=== PATIENT | female | born 1950 | race Caucasian/White ===

== ENCOUNTER 2016-06-03 08:27 | Outpatient (RCR) | payer BC ==
[~2016-06-03 08:27] MED LIST: CEPH500C; FLUO20CA25; OLME1TAB19; PERCOCET; PRAV40TA; SIMV40TA2; VALIUM; [UNRECOGNIZED DRUG - OTHER]
--- OUTSIDE RECORDS SUMMARY | 2016-06-03 08:30 | XMS REPORT | Continuity of Care Document ---
Author Author [facility] Organization [facility] Address Unknown Phone Unavailable Care Team Providers Care Edge Bonder Name Role Phone BUCKY HADLEY MD PCP Insurance Providers Payer Name Policy Number Subscriber Name Relationship [facility] [id number] Janie Gautam 18 Self / Same As Patient Problems No known problems or medical conditions. Medications Medication Dose Route Sig Days/Qty Instructions Order Date Discontinued Date Status Olmesartan 09/08/10 Active [Phenofargrate] 09/08/10 Active Pravastatin Sodium 09/08/10 Active Fluoxetine HCl (Prozac) 09/08/10 Active Simvastatin 09/08/10 Active Cephalexin Monohydrate (Keflex) FOUR TIMES DAILY 09/08/10 Active [Valium] 09/08/10 Active [Percocet] 09/08/10 Active Social History Social History Problem Response Recorded Date/Time Recent Foreign Travel N [place]ALIIA SCOTT 08/12/2014 8:41am Hospital Discharge Instructions No hospital discharge instructions. Plan of Care No plan of care. Functional Status No functional status results. Allergies, Adverse Reactions, Alerts Allergen Type Severity Reaction Status Last Updated sulfamethoxazole ([id number]) Allergy Unknown Active 11/04/10 Trimethoprim Allergy Unknown Active 11/04/10 Immunizations No immunization records. Vital Signs No known vital signs results. Results Laboratory Results Test Name Result Units Flags Reference Collection Date/Time Result Date/ Time Comments White Blood Count 4.0 10^3/uL L 4.3-11.0 08/12/2014 8:41am 08/12/2014 9: 10am Red Blood Count 4.63 10^6/uL 4.35-5.85 08/12/2014 8:4108/12/2014 9: 10am Hemoglobin 12.8 G/DL 11.5-16.0 08/12/2014 8:4108/12/2014 9:10am Hematocrit 38 % 35-52 08/12/2014 8:4108/12/2014 9:10am Mean Corpuscular Volume 81 FL 80-99 08/12/2014 8:4108/12/2014 9: 10am Mean Corpuscular Hemoglobin 28 PG 25-34 08/12/2014 8:4108/12/2014 9: 10am Mean Corpuscular Hemoglobin Concent 34 G/DL 32-36 08/12/2014 8:01/2015 9:10am Red Cell Distribution Width 14.0 % 10.0-14.5 08/12/2014 8:412014 9:10am Platelet Count 213 10^3/uL 130-400 08/12/2014 8:08/12/2014 9:10am Mean Platelet Volume 11.2 FL H 7.4-10.4 08/12/2014 8:4108/12/2014 9: 10am Neutrophils (%) (Auto) 58 % 42-75 08/12/2014 8:08/12/2014 9:10am Lymphocytes (%) (Auto) 31 % 12-44 08/12/2014 8:08/12/2014 9:10am Monocytes (%) (Auto) 8 % 0-12 08/12/2014 8:08/12/2014 9:10am Eosinophils (%) (Auto) 2 % 0-10 08/12/2014 8:4108/12/2014 9:10am Basophils (%) (Auto) 1 % 0-10 08/12/2014 8:08/12/2014 9:10am Neutrophils # (Auto) 2.3 X 10^3 1.8-7.8 08/12/2014 8:4108/12/2014 9: 10am Lymphocytes # (Auto) 1.2 X 10^3 1.0-4.0 08/12/2014 8:4108/12/2014 9: 10am Monocytes # (Auto) 0.3 X 10^3 0.0-1.0 08/12/2014 8:41am 08/12/2014 9: 10am Eosinophils # (Auto) 0.1 10^3/uL 0.0-0.3 08/12/2014 8:41am 08/12/2014 9 :10am Basophils # (Auto) 0.0 10^3/uL 0.0-0.1 08/12/2014 8:41am 08/12/2014 9: 10am Sodium Level 138 MMOL/L 135-145 08/12/2014 8:4108/12/2014 9:50am Potassium Level 3.7 MMOL/L 3.6-5.0 08/12/2014 8:41am 08/12/2014 9:50am Chloride Level 102 MMOL/L 98-107 08/12/2014 8:41am 08/12/2014 9:50am Carbon Dioxide Level 27 MMOL/L 21-32 08/12/2014 8:41am 08/12/2014 9: 50am Blood Urea Nitrogen 19 MG/DL H 7-18 08/12/2014 8:41am 08/12/2014 9:50am Creatinine 0.76 MG/DL 0.60-1.30 08/12/2014 8:41am 08/12/2014 9:50am BUN/Creatinine Ratio 25 08/12/2014 8:41am 08/12/2014 9:50am Estimat Glomerular Filtration Rate > 60 08/12/2014 8:412014 9:50am GFR INTERPRETIVE DATA UNITS FOR ESTIMATED GFR (eGFR): mL/min/1.73 M2 REFERENCE RANGE FOR ESTIMATED GFR (eGFR) eGFR NORMAL eGFR >60 MODERATELY DECREASED eGFR 30-59 SEVERLY DECREASED eGFR 15-29 KIDNEY FAILURE <15 (OR DIALYSIS) Glucose Level 97 MG/DL 70-105 08/12/2014 8:41am 08/12/2014 9:50am Calcium Level 9.6 MG/DL 8.5-10.1 08/12/2014 8:4108/12/2014 9:50am Total Bilirubin 0.5 MG/DL 0.1-1.0 08/12/2014 8:41am 08/12/2014 9:50am Alkaline Phosphatase 29 U/L L 40-136 08/12/2014 8:41am 08/12/2014 9:50am Aspartate Amino Transf (AST/SGOT) 23 U/L 5-34 08/12/2014 8:41am 2014 9:50am Alanine Aminotransferase (ALT/SGPT) 26 U/L 0-55 08/12/2014 8:41am 08/12 9:50am Total Protein 7.0 G/DL 6.4-8.2 08/12/2014 8:41am 08/12/2014 9:50am Albumin 4.4 G/DL 3.2-4.5 08/12/2014 8:41am 08/12/2014 9:50am Procedures No known history of procedures. Encounters Encounter Location Date/Time Discharged Recurring Via [facility] 08/12/14 8:41am
[2016-06-03 08:48] LABS: BASOPHILS % (AUTO) 1 % (0-10); EOSINOPHILS # (AUTO) 0.1 10^3/uL (0.0-0.3); EOSINOPHILS % (AUTO) 3 % (0-10); LYMPHOCYTES # (AUTO) 1.1 X 10^3 (1.0-4.0); LYMPHOCYTES % (AUTO) 30 % (12-44); MEAN CORPUSCULAR HEMOGLOBIN 28 PG (25-34); MEAN CORPUSCULAR HGB CONC 34 G/DL (32-36); MEAN CORPUSCULAR VOLUME 83 FL (80-99); MEAN PLATELET VOLUME 11.4 FL (7.4-10.4); MONOCYTES # (AUTO) 0.3 X 10^3 (0.0-1.0); MONOCYTES % (AUTO) 8 % (0-12); NEUTROPHILS # (AUTO) 2.1 X 10^3 (1.8-7.8); NEUTROPHILS % (AUTO) 59 % (42-75); PLATELET COUNT 224 10^3/uL (130-400); RED BLOOD COUNT 4.79 10^6/uL (4.35-5.85); RED CELL DISTRIBUTION WIDTH 13.6 % (10.0-14.5); WHITE BLOOD COUNT 3.7 10^3/uL (4.3-11.0)
== END 2016-09-01 | disposition home or self-care (01) ==
LOC: ONC 08:27
PROVIDERS: ATTEND Internal Medicine Hematology & Oncology
DX: C50.912 Malignant neoplasm of unspecified site of left female breast (principal); M85.89 Other specified disorders of bone density and structure, multiple sites; Z17.0 Estrogen receptor positive status [ER+]; Z79.811 Long term (current) use of aromatase inhibitors; Z79.899 Other long term (current) drug therapy
CPT/HCPCS: 36415; 82306; 85025

== ENCOUNTER 2016-09-26 14:43 | Outpatient (RCR) | payer BC ==
--- OUTSIDE RECORDS SUMMARY | 2016-09-23 08:34 | XMS REPORT | Continuity of Care Document ---
Author Author [facility] Organization [facility] Address Unknown Phone Unavailable Care Team Providers Care Film Archivist Name Role Phone BUCKY HADLEY MD PCP Insurance Providers Payer Name Policy Number Subscriber Name Relationship [facility] [id number] Janie Gautam 18 Self / Same As [...] Type Severity Reaction Status Last Updated sulfamethoxazole ([id number]) Allergy Unknown Active 11/04/10 Trimethoprim Allergy Unknown [...] Encounters Encounter Location Date/Time Discharged Recurring Via [facility] 08/12/14 8:41am
[2016-09-23 08:51] LABS: BASOPHILS % (AUTO) 1 % (0-10); EOSINOPHILS # (AUTO) 0.2 10^3/uL (0.0-0.3); EOSINOPHILS % (AUTO) 4 % (0-10); LYMPHOCYTES # (AUTO) 1.2 X 10^3 (1.0-4.0); LYMPHOCYTES % (AUTO) 27 % (12-44); MEAN CORPUSCULAR HEMOGLOBIN 28 PG (25-34); MEAN CORPUSCULAR HGB CONC 34 G/DL (32-36); MEAN CORPUSCULAR VOLUME 82 FL (80-99); MEAN PLATELET VOLUME 11.3 FL (7.4-10.4); MONOCYTES # (AUTO) 0.2 X 10^3 (0.0-1.0); MONOCYTES % (AUTO) 5 % (0-12); NEUTROPHILS # (AUTO) 2.7 X 10^3 (1.8-7.8); NEUTROPHILS % (AUTO) 63 % (42-75); PLATELET COUNT 215 10^3/uL (130-400); RED BLOOD COUNT 4.86 10^6/uL (4.35-5.85); RED CELL DISTRIBUTION WIDTH 14.2 % (10.0-14.5); WHITE BLOOD COUNT 4.3 10^3/uL (4.3-11.0)
[2016-09-23 09:15] LABS: ALANINE AMINOTRANSFERASE 29 U/L (0-55); ALBUMIN 4.8 G/DL (3.2-4.5); ANION GAP 13 MMOL/L (5-14); ASPARTATE AMINO TRANSFERASE 27 U/L (5-34); BILIRUBIN,TOTAL 0.6 MG/DL (0.1-1.0); BLOOD UREA NITROGEN 16 MG/DL (7-18); BUN/CREATININE RATIO 20; CALCIUM 9.8 MG/DL (8.5-10.1); CARBON DIOXIDE 24 MMOL/L (21-32); CHLORIDE 101 MMOL/L (98-107); CREATININE SERUM 0.82 MG/DL (0.60-1.30); GFR ESTIMATED > 60; GLUCOSE 96 MG/DL (70-105); POTASSIUM 3.8 MMOL/L (3.6-5.0); SODIUM 138 MMOL/L (135-145); TOTAL PROTEIN 7.1 G/DL (6.4-8.2)
== END 2016-12-22 | disposition home or self-care (01) ==
LOC: ONC 14:43
PROVIDERS: ATTEND Internal Medicine Hematology & Oncology
DX: C50.912 Malignant neoplasm of unspecified site of left female breast (principal); M85.89 Other specified disorders of bone density and structure, multiple sites; Z17.0 Estrogen receptor positive status [ER+]; Z79.811 Long term (current) use of aromatase inhibitors; Z79.899 Other long term (current) drug therapy
CPT/HCPCS: 36415; 80053; 85025; 99213

== ENCOUNTER 2017-03-27 14:59 | Outpatient (RCR) | payer BC ==
[2017-03-23 09:06] LABS: BASOPHILS % (AUTO) 1 % (0-10); EOSINOPHILS # (AUTO) 0.1 10^3/uL (0.0-0.3); EOSINOPHILS % (AUTO) 3 % (0-10); LYMPHOCYTES # (AUTO) 1.2 X 10^3 (1.0-4.0); LYMPHOCYTES % (AUTO) 28 % (12-44); MEAN CORPUSCULAR HEMOGLOBIN 27 PG (25-34); MEAN CORPUSCULAR HGB CONC 33 G/DL (32-36); MEAN CORPUSCULAR VOLUME 83 FL (80-99); MEAN PLATELET VOLUME 11.2 FL (7.4-10.4); MONOCYTES # (AUTO) 0.4 X 10^3 (0.0-1.0); MONOCYTES % (AUTO) 8 % (0-12); NEUTROPHILS # (AUTO) 2.5 X 10^3 (1.8-7.8); NEUTROPHILS % (AUTO) 60 % (42-75); PLATELET COUNT 217 10^3/uL (130-400); RED BLOOD COUNT 4.68 10^6/uL (4.35-5.85); RED CELL DISTRIBUTION WIDTH 14.3 % (10.0-14.5); WHITE BLOOD COUNT 4.2 10^3/uL (4.3-11.0)
[2017-03-23 09:56] LABS: ALANINE AMINOTRANSFERASE 23 U/L (0-55); ALBUMIN 4.5 GM/DL (3.2-4.5); ANION GAP 9 MMOL/L (5-14); ASPARTATE AMINO TRANSFERASE 24 U/L (5-34); BILIRUBIN,TOTAL 0.5 MG/DL (0.1-1.0); BLOOD UREA NITROGEN 16 MG/DL (7-18); BUN/CREATININE RATIO 21; CALCIUM 10.2 MG/DL (8.5-10.1); CARBON DIOXIDE 28 MMOL/L (21-32); CHLORIDE 102 MMOL/L (98-107); CREATININE SERUM 0.78 MG/DL (0.60-1.30); GFR ESTIMATED > 60; GLUCOSE 89 MG/DL (70-105); POTASSIUM 3.7 MMOL/L (3.6-5.0); SODIUM 139 MMOL/L (135-145); TOTAL PROTEIN 6.9 GM/DL (6.4-8.2)
== END 2017-05-06 | disposition home or self-care (01) ==
LOC: ONC 14:59
PROVIDERS: ATTEND Internal Medicine Hematology & Oncology
DX: C50.112 Malignant neoplasm of central portion of left female breast (principal); M85.89 Other specified disorders of bone density and structure, multiple sites; Z17.0 Estrogen receptor positive status [ER+]; Z79.811 Long term (current) use of aromatase inhibitors; Z79.899 Other long term (current) drug therapy
CPT/HCPCS: 36415; 80053; 82306; 85025; 99213

== ENCOUNTER → 2017-08-25 | Outpatient (REF) ==
--- NOTE | 2017-08-25 14:14 | Diagnostic Imaging Report ---
INDICATION: Fall and right elbow pain. TIME OF EXAM: 1:40 p.m. Three views of the right elbow were obtained. The alignment is normal. No joint effusion is seen. There is a tiny osseous density adjacent to the coronoid process of the proximal ulna. Tiny fracture dislocation cannot be excluded. Acuity is indeterminate. No other abnormalities are seen. IMPRESSION: Probable age-indeterminate tiny fracture at the coronoid process of the proximal ulna. The study is otherwise unremarkable. Dictated by: Dictated on workstation # [id number]
--- NOTE | 2017-08-25 14:23 | Diagnostic Imaging Report ---
INDICATION: Fall with right knee pain and injury. TIME OF EXAM: 1:42 p.m. Three views of the right knee were obtained. The alignment is normal. The joint spaces are fairly well-maintained. Articular surfaces are smooth. No fracture, dislocation or effusion is detected. IMPRESSION: No acute abnormality is detected. Dictated by: Dictated on workstation # [id number]
== END | disposition home or self-care (01) ==
LOC: OCC 13:22
PROVIDERS: ATTEND Nurse Practitioner Family
CPT/HCPCS: 73080; 73562

== ENCOUNTER 2017-09-19 10:55 | Outpatient (RCR) | payer MEDICARE, OTHER ==
[2017-08-16 08:52] LABS: BASOPHILS % (AUTO) 1 % (0-10); EOSINOPHILS # (AUTO) 0.1 10^3/uL (0.0-0.3); EOSINOPHILS % (AUTO) 3 % (0-10); HEMATOCRIT 38 % (35-52); HEMOGLOBIN 13.2 G/DL (11.5-16.0); LYMPHOCYTES # (AUTO) 1.1 X 10^3 (1.0-4.0); LYMPHOCYTES % (AUTO) 27 % (12-44); MEAN CORPUSCULAR HEMOGLOBIN 28 PG (25-34); MEAN CORPUSCULAR HGB CONC 35 G/DL (32-36); MEAN CORPUSCULAR VOLUME 82 FL (80-99); MEAN PLATELET VOLUME 11.4 FL (7.4-10.4); MONOCYTES # (AUTO) 0.3 X 10^3 (0.0-1.0); MONOCYTES % (AUTO) 8 % (0-12); NEUTROPHILS # (AUTO) 2.6 X 10^3 (1.8-7.8); NEUTROPHILS % (AUTO) 61 % (42-75); PLATELET COUNT 193 10^3/uL (130-400); RED BLOOD COUNT 4.67 10^6/uL (4.35-5.85); RED CELL DISTRIBUTION WIDTH 14.2 % (10.0-14.5); WHITE BLOOD COUNT 4.2 10^3/uL (4.3-11.0)
[2017-08-16 09:12] LABS: ALANINE AMINOTRANSFERASE 27 U/L (0-55); ALBUMIN 4.3 GM/DL (3.2-4.5); ALKALINE PHOSPHATASE 31 U/L (40-136); BILIRUBIN,TOTAL 0.5 MG/DL (0.1-1.0); BUN/CREATININE RATIO 25; CALCIUM 9.6 MG/DL (8.5-10.1); CARBON DIOXIDE 27 MMOL/L (21-32); CHLORIDE 103 MMOL/L (98-107); CREATININE SERUM 0.73 MG/DL (0.60-1.30); GFR ESTIMATED > 60; GLUCOSE 99 MG/DL (70-105); POTASSIUM 3.9 MMOL/L (3.6-5.0); SODIUM 141 MMOL/L (135-145); TOTAL PROTEIN 6.8 GM/DL (6.4-8.2)
== END 2017-11-14 | disposition home or self-care (01) ==
LOC: ONC 10:55
PROVIDERS: ATTEND Internal Medicine Hematology & Oncology
DX: C50.112 Malignant neoplasm of central portion of left female breast (principal); M85.89 Other specified disorders of bone density and structure, multiple sites; Z17.0 Estrogen receptor positive status [ER+]; Z79.811 Long term (current) use of aromatase inhibitors; Z79.899 Other long term (current) drug therapy
CPT/HCPCS: 80053; 85025; 99213

== ENCOUNTER → 2018-06-07 | Outpatient (CLI) | payer MEDICARE, OTHER ==
--- NOTE | 2018-06-07 10:26 | Diagnostic Imaging Report ---
Indication: Postmenopausal. Comparison is made with prior DEXA study from 05/26/2016. Bone mineral analysis of lumbar spine and both hips was performed. Bone marrow density lumbar spine L2-L4 is 1.063 with T score -1.1. This compares with 1.036 and -1.4. Bone mineral density left femoral neck 0.759 with T score -2.0. This compares with 0.733 and -2.2. Bone mineral density right femoral neck 0.738 with T score -2.2. This compares with 0.749 and -2.1. Impression: Continued findings of osteopenia of the lumbar spine and bilateral femoral necks. Dictated by: Dictated on workstation # [id number]
== END ==
LOC: RAD 08:47
PROVIDERS: ATTEND Nurse Practitioner Adult Health
DX: C50.112 Malignant neoplasm of central portion of left female breast (principal); M85.89 Other specified disorders of bone density and structure, multiple sites; Z78.0 Asymptomatic menopausal state; Z79.811 Long term (current) use of aromatase inhibitors
CPT/HCPCS: 77080

== ENCOUNTER 2018-06-18 10:41 | Outpatient (RCR) | payer MEDICARE, OTHER ==
[2018-06-07 09:30] LABS: BASOPHILS % (AUTO) 0 % (0-10); EOSINOPHILS # (AUTO) 0.1 10^3/uL (0.0-0.3); EOSINOPHILS % (AUTO) 2 % (0-10); HEMATOCRIT 38 % (35-52); LYMPHOCYTES # (AUTO) 1.3 X 10^3 (1.0-4.0); LYMPHOCYTES % (AUTO) 28 % (12-44); MEAN CORPUSCULAR HEMOGLOBIN 29 PG (25-34); MEAN CORPUSCULAR HGB CONC 34 G/DL (32-36); MEAN CORPUSCULAR VOLUME 83 FL (80-99); MEAN PLATELET VOLUME 11.3 FL (7.4-10.4); MONOCYTES # (AUTO) 0.4 X 10^3 (0.0-1.0); MONOCYTES % (AUTO) 8 % (0-12); NEUTROPHILS # (AUTO) 2.9 X 10^3 (1.8-7.8); NEUTROPHILS % (AUTO) 61 % (42-75); PLATELET COUNT 203 10^3/uL (130-400); RED CELL DISTRIBUTION WIDTH 14.2 % (10.0-14.5); WHITE BLOOD COUNT 4.7 10^3/uL (4.3-11.0)
[2018-06-07 09:57] LABS: ALANINE AMINOTRANSFERASE 27 U/L (0-55); ALBUMIN 4.9 GM/DL (3.2-4.5); ALKALINE PHOSPHATASE 35 U/L (40-136); BILIRUBIN,TOTAL 0.6 MG/DL (0.1-1.0); BUN/CREATININE RATIO 18; CALCIUM 10.5 MG/DL (8.5-10.1); CARBON DIOXIDE 26 MMOL/L (21-32); CHLORIDE 103 MMOL/L (98-107); CREATININE SERUM 0.78 MG/DL (0.60-1.30); GFR ESTIMATED > 60; GLUCOSE 94 MG/DL (70-105); SODIUM 139 MMOL/L (135-145); TOTAL PROTEIN 7.4 GM/DL (6.4-8.2)
== END 2018-09-05 | disposition home or self-care (01) ==
LOC: ONC 10:41
PROVIDERS: ATTEND Internal Medicine Hematology & Oncology
DX: C50.112 Malignant neoplasm of central portion of left female breast (principal); M85.89 Other specified disorders of bone density and structure, multiple sites; Z17.0 Estrogen receptor positive status [ER+]; Z78.0 Asymptomatic menopausal state; Z79.811 Long term (current) use of aromatase inhibitors; Z79.899 Other long term (current) drug therapy
CPT/HCPCS: 36415; 80053; 82306; 85025

== ENCOUNTER 2018-12-17 09:49 | Outpatient (RCR) | payer MEDICARE, OTHER ==
[2018-12-17 10:11] LABS: BASOPHILS % (AUTO) 1 % (0-10); EOSINOPHILS # (AUTO) 0.1 10^3/uL (0.0-0.3); EOSINOPHILS % (AUTO) 3 % (0-10); HEMATOCRIT 39 % (35-52); HEMOGLOBIN 12.9 G/DL (11.5-16.0); LYMPHOCYTES # (AUTO) 1.3 X 10^3 (1.0-4.0); LYMPHOCYTES % (AUTO) 28 % (12-44); MEAN CORPUSCULAR HEMOGLOBIN 28 PG (25-34); MEAN CORPUSCULAR HGB CONC 33 G/DL (32-36); MEAN CORPUSCULAR VOLUME 83 FL (80-99); MEAN PLATELET VOLUME 11.2 FL (7.4-10.4); MONOCYTES # (AUTO) 0.3 X 10^3 (0.0-1.0); MONOCYTES % (AUTO) 8 % (0-12); NEUTROPHILS # (AUTO) 2.7 X 10^3 (1.8-7.8); NEUTROPHILS % (AUTO) 61 % (42-75); PLATELET COUNT 223 10^3/uL (130-400); RED CELL DISTRIBUTION WIDTH 13.9 % (10.0-14.5); WHITE BLOOD COUNT 4.4 10^3/uL (4.3-11.0)
[2018-12-17 10:23] LABS: ALANINE AMINOTRANSFERASE 23 U/L (0-55); ALBUMIN 4.6 GM/DL (3.2-4.5); ALKALINE PHOSPHATASE 44 U/L (40-136); BILIRUBIN,TOTAL 0.5 MG/DL (0.1-1.0); BUN/CREATININE RATIO 22; CALCIUM 10.1 MG/DL (8.5-10.1); CARBON DIOXIDE 25 MMOL/L (21-32); CHLORIDE 102 MMOL/L (98-107); CREATININE SERUM 0.81 MG/DL (0.60-1.30); GFR ESTIMATED > 60; GLUCOSE 100 MG/DL (70-105); SODIUM 139 MMOL/L (135-145)
== END 2019-03-17 ==
LOC: ONC 09:49
PROVIDERS: ATTEND Internal Medicine Hematology & Oncology
DX: C50.112 Malignant neoplasm of central portion of left female breast (principal); M85.89 Other specified disorders of bone density and structure, multiple sites; Z17.0 Estrogen receptor positive status [ER+]; Z78.0 Asymptomatic menopausal state; Z79.811 Long term (current) use of aromatase inhibitors; Z79.899 Other long term (current) drug therapy
CPT/HCPCS: 36415; 80053; 85025; 99213

== ENCOUNTER 2019-06-27 10:08 | Outpatient (RCR) | payer MEDICARE, OTHER ==
[2019-06-27 10:52] LABS: BASOPHILS % (AUTO) 1 % (0-10); EOSINOPHILS # (AUTO) 0.1 10^3/uL (0.0-0.3); EOSINOPHILS % (AUTO) 2 % (0-10); HEMATOCRIT 40 % (35-52); HEMOGLOBIN 13.3 G/DL (11.5-16.0); LYMPHOCYTES # (AUTO) 1.3 X 10^3 (1.0-4.0); LYMPHOCYTES % (AUTO) 26 % (12-44); MEAN CORPUSCULAR HEMOGLOBIN 28 PG (25-34); MEAN CORPUSCULAR HGB CONC 33 G/DL (32-36); MEAN CORPUSCULAR VOLUME 84 FL (80-99); MEAN PLATELET VOLUME 11.6 FL (7.4-10.4); MONOCYTES # (AUTO) 0.3 X 10^3 (0.0-1.0); MONOCYTES % (AUTO) 7 % (0-12); NEUTROPHILS # (AUTO) 3.1 X 10^3 (1.8-7.8); NEUTROPHILS % (AUTO) 64 % (42-75); PLATELET COUNT 216 10^3/uL (130-400); WHITE BLOOD COUNT 4.8 10^3/uL (4.3-11.0)
[2019-06-27 11:13] LABS: ALANINE AMINOTRANSFERASE 32 U/L (0-55); ALBUMIN 4.7 GM/DL (3.2-4.5); ALKALINE PHOSPHATASE 39 U/L (40-136); BILIRUBIN,TOTAL 0.5 MG/DL (0.1-1.0); BUN/CREATININE RATIO 20; CALCIUM 9.8 MG/DL (8.5-10.1); CARBON DIOXIDE 27 MMOL/L (21-32); CHLORIDE 102 MMOL/L (98-107); CREATININE SERUM 0.79 MG/DL (0.60-1.30); GFR ESTIMATED > 60; GLUCOSE 95 MG/DL (70-105); POTASSIUM 3.8 MMOL/L (3.6-5.0); SODIUM 138 MMOL/L (135-145)
== END 2019-09-25 | disposition home or self-care (01) ==
LOC: ONC 10:08
PROVIDERS: ATTEND Internal Medicine Hematology & Oncology
DX: C50.112 Malignant neoplasm of central portion of left female breast (principal); M85.89 Other specified disorders of bone density and structure, multiple sites; I10 Essential (primary) hypertension; E78.00 Pure hypercholesterolemia, unspecified; Z79.899 Other long term (current) drug therapy; Z92.21 Personal history of antineoplastic chemotherapy; Z90.11 Acquired absence of right breast and nipple; Z98.82 Breast implant status; Z78.0 Asymptomatic menopausal state; Z79.811 Long term (current) use of aromatase inhibitors
CPT/HCPCS: 36415; 80053; 85025; 99213

== ENCOUNTER → 2019-06-27 | Outpatient (CLI) | payer MEDICARE, OTHER | LOC: LAB 10:14 | PROVIDERS: ATTEND Family Medicine | DX: E78.2 Mixed hyperlipidemia (principal); E55.9 Vitamin D deficiency, unspecified; I10 Essential (primary) hypertension | CPT/HCPCS: 36415; 80061; 82306; 84443 ==

== ENCOUNTER 2019-12-25 12:34 | Outpatient (RCR) | payer MEDICARE, OTHER ==
[2019-12-25 13:23] LABS: BASOPHILS % (AUTO) 1 % (0-10); EOSINOPHILS # (AUTO) 0.1 10^3/uL (0.0-0.3); EOSINOPHILS % (AUTO) 2 % (0-10); HEMATOCRIT 38 % (35-52); HEMOGLOBIN 12.8 G/DL (11.5-16.0); LYMPHOCYTES # (AUTO) 1.2 X 10^3 (1.0-4.0); LYMPHOCYTES % (AUTO) 24 % (12-44); MEAN CORPUSCULAR HEMOGLOBIN 28 PG (25-34); MEAN CORPUSCULAR HGB CONC 34 G/DL (32-36); MEAN CORPUSCULAR VOLUME 83 FL (80-99); MEAN PLATELET VOLUME 11.5 FL (7.4-10.4); MONOCYTES # (AUTO) 0.4 X 10^3 (0.0-1.0); MONOCYTES % (AUTO) 7 % (0-12); NEUTROPHILS # (AUTO) 3.4 X 10^3 (1.8-7.8); NEUTROPHILS % (AUTO) 67 % (42-75); PLATELET COUNT 193 10^3/uL (130-400); RED CELL DISTRIBUTION WIDTH 14.4 % (10.0-14.5)
[2019-12-25 13:43] LABS: ALANINE AMINOTRANSFERASE 31 U/L (0-55); ALBUMIN 4.5 GM/DL (3.2-4.5); ALKALINE PHOSPHATASE 38 U/L (40-136); BILIRUBIN,TOTAL 0.5 MG/DL (0.1-1.0); BUN/CREATININE RATIO 21; CARBON DIOXIDE 26 MMOL/L (21-32); CHLORIDE 101 MMOL/L (98-107); CREATININE SERUM 0.76 MG/DL (0.60-1.30); GFR ESTIMATED > 60; GLUCOSE 95 MG/DL (70-105); POTASSIUM 3.8 MMOL/L (3.6-5.0); SODIUM 138 MMOL/L (135-145)
== END 2020-03-24 | disposition home or self-care (01) ==
LOC: ONC 12:34
PROVIDERS: ATTEND Internal Medicine Hematology & Oncology
DX: C50.112 Malignant neoplasm of central portion of left female breast (principal); M85.89 Other specified disorders of bone density and structure, multiple sites; I10 Essential (primary) hypertension; E78.00 Pure hypercholesterolemia, unspecified; Z79.899 Other long term (current) drug therapy; Z92.21 Personal history of antineoplastic chemotherapy; Z90.11 Acquired absence of right breast and nipple; Z98.82 Breast implant status; Z78.0 Asymptomatic menopausal state; Z79.811 Long term (current) use of aromatase inhibitors
CPT/HCPCS: 80053; 85025; G0463; 99213

== ENCOUNTER → 2020-06-09 | Outpatient (CLI) | payer MEDICARE, OTHER | LOC: LAB 10:21 | PROVIDERS: ATTEND Family Medicine | DX: Z13.6 Encounter for screening for cardiovascular disorders (principal); I10 Essential (primary) hypertension | CPT/HCPCS: 36415; 80061; 84443 ==

== ENCOUNTER → 2020-06-09 | Outpatient (CLI) | payer MEDICARE, OTHER ==
--- NOTE | 2020-06-09 15:14 | Diagnostic Imaging Report ---
INDICATION: 69-year-old female, postmenopausal. Screening for osteoporosis. COMPARISON: June 07, 2018. FINDINGS: AP Spine L1-L4: [BMD (g/cm2): 1.040] [T-Score: -1.3] [Z-Score: 0.2] [BMD Previous: 1.063] [BMD % Change: -2.2] LT Hip Neck: [BMD (g/cm2): 0.731] [T-Score: -2.2] [Z-Score: -0.7] LT Hip Total: [BMD (g/cm2):0.766] [T-Score:-1.9] [Z-Score: -0.6] [BMD Previous: 0.792] [BMD % Change: -3.3] RT Hip Neck: [BMD (g/cm2):0.768] [T-Score:-1.9] [Z-Score:-0.4] RT Hip Total: [BMD (g/cm2):0.830] [T-score:-1.4] [Z-Score:-0.1] [BMD Previous:0.826] [BMD % Change:0.5] *Indicates significant change from prior examination based on 95% confidence level. World Health Organization criteria for BMD interpretation classify patients as Normal (T-score at or above -1.0), Osteopenic (T-score between -1.0 and -2.5) or Osteoporotic (T-score at or below -2.5). LIMITATIONS AND MODIFICATION: None. FRACTURE RISK (FRAX SCORE): The ten year probability of (%): Major Osteoporotic Fracture: [12.3] Hip Fracture: [2.5] IMPRESSION: 1. Osteopenia (Low bone mass). 2. No significant change in bone mineral density since prior examination. 3. See below National Osteoporosis Foundation guidelines on when to potentially initiate pharmacologic therapy. Based on the National Osteoporosis Foundation Guidelines, pharmacologic treatment should be initiated in any of the following, unless clinical conditions suggest otherwise: * Any patient with prior fragility fracture of the hip or vertebrae. A spine fracture indicates 5X risk for subsequent spine fracture and 2X risk for subsequent hip fracture. * Osteoporosis (T-score <-2.5). * Postmenopausal women and men age 50 and older with low bone mass/osteopenia (T-score between -1.0 and -2.5) by DXA and 10-year major osteoporotic fracture greater than 20% or a 10-year probability of hip fracture greater than 3%. These fracture risks are supplied above in the FRAX score, if applicable. * Clinician judgement and/or patient preferences may indicate treatment for people with 10-year fracture probabilities above or below these levels. Dictated by: Dictated on workstation # [id number]
== END ==
LOC: RAD 09:30
PROVIDERS: ATTEND Nurse Practitioner Adult Health
DX: C50.112 Malignant neoplasm of central portion of left female breast (principal); M85.88 Other specified disorders of bone density and structure, other site; Z79.811 Long term (current) use of aromatase inhibitors; Z78.0 Asymptomatic menopausal state
CPT/HCPCS: 77080

== ENCOUNTER 2020-06-15 10:47 | Outpatient (RCR) | payer MEDICARE, OTHER ==
[2020-06-09 11:01] LABS: BASOPHILS % (AUTO) 1 % (0-10); EOSINOPHILS # (AUTO) 0.1 10^3/uL (0.0-0.3); EOSINOPHILS % (AUTO) 3 % (0-10); HEMATOCRIT 40 % (35-52); HEMOGLOBIN 13.2 g/dL (11.5-16.0); LYMPHOCYTES % (AUTO) 25 % (12-44); MEAN CORPUSCULAR HEMOGLOBIN 28 pg (25-34); MEAN CORPUSCULAR HGB CONC 33 g/dL (32-36); MEAN CORPUSCULAR VOLUME 84 fL (80-99); MONOCYTES # (AUTO) 0.3 10^3/uL (0.0-1.0); MONOCYTES % (AUTO) 7 % (0-12); NEUTROPHILS # (AUTO) 2.6 10^3/uL (1.8-7.8); NEUTROPHILS % (AUTO) 65 % (42-75); PLATELET COUNT 192 10^3/uL (130-400); WHITE BLOOD COUNT 4.1 10^3/uL (4.3-11.0)
[2020-06-09 11:20] LABS: ALANINE AMINOTRANSFERASE 33 U/L (0-55); ALBUMIN 4.7 GM/DL (3.2-4.5); ALKALINE PHOSPHATASE 44 U/L (40-136); BILIRUBIN,TOTAL 0.7 MG/DL (0.1-1.0); BUN/CREATININE RATIO 17; CALCIUM 9.6 MG/DL (8.5-10.1); CARBON DIOXIDE 30 MMOL/L (21-32); CHLORIDE 101 MMOL/L (98-107); CREATININE SERUM 0.77 MG/DL (0.60-1.30); GFR ESTIMATED > 60; GLUCOSE 96 MG/DL (70-105); POTASSIUM 3.8 MMOL/L (3.6-5.0); SODIUM 139 MMOL/L (135-145); TOTAL PROTEIN 7.1 GM/DL (6.4-8.2)
== END 2020-09-07 | disposition home or self-care (01) ==
LOC: ONC 10:47
PROVIDERS: ATTEND Internal Medicine Hematology & Oncology
DX: C50.112 Malignant neoplasm of central portion of left female breast (principal); M85.89 Other specified disorders of bone density and structure, multiple sites; I10 Essential (primary) hypertension; E78.00 Pure hypercholesterolemia, unspecified; Z79.899 Other long term (current) drug therapy; Z92.21 Personal history of antineoplastic chemotherapy; Z90.11 Acquired absence of right breast and nipple; Z98.82 Breast implant status; Z78.0 Asymptomatic menopausal state; Z79.811 Long term (current) use of aromatase inhibitors
CPT/HCPCS: 80053; 85025; 99213

== ENCOUNTER → 2021-03-22 | Outpatient (CLI) | payer MEDICARE, OTHER ==
[2021-03-22 09:57] LABS: BASOPHILS # (AUTO) 0.1 10^3/uL (0.0-0.1); BASOPHILS % (AUTO) 1 % (0-10); EOSINOPHILS # (AUTO) 0.1 10^3/uL (0.0-0.3); EOSINOPHILS % (AUTO) 3 % (0-10); HEMATOCRIT 40 % (35-52); HEMOGLOBIN 13.2 g/dL (11.5-16.0); LYMPHOCYTES # (AUTO) 1.3 10^3/uL (1.0-4.0); LYMPHOCYTES % (AUTO) 27 % (12-44); MEAN CORPUSCULAR HEMOGLOBIN 28 pg (25-34); MEAN CORPUSCULAR HGB CONC 33 g/dL (32-36); MEAN CORPUSCULAR VOLUME 86 fL (80-99); MEAN PLATELET VOLUME 12.1 fL (9.0-12.2); MONOCYTES # (AUTO) 0.4 10^3/uL (0.0-1.0); MONOCYTES % (AUTO) 8 % (0-12); NEUTROPHILS # (AUTO) 2.9 10^3/uL (1.8-7.8); NEUTROPHILS % (AUTO) 61 % (42-75); PLATELET COUNT 200 10^3/uL (130-400); WHITE BLOOD COUNT 4.7 10^3/uL (4.3-11.0)
[2021-03-22 10:18] LABS: ALANINE AMINOTRANSFERASE 30 U/L (0-55); ALBUMIN 4.6 GM/DL (3.2-4.5); ALKALINE PHOSPHATASE 48 U/L (40-136); BILIRUBIN,TOTAL 0.6 MG/DL (0.1-1.0); BUN/CREATININE RATIO 18; CALCIUM 9.9 MG/DL (8.5-10.1); CARBON DIOXIDE 28 MMOL/L (21-32); CHLORIDE 104 MMOL/L (98-107); GFR ESTIMATED 71; GLUCOSE 98 MG/DL (70-105); POTASSIUM 3.7 MMOL/L (3.6-5.0); SODIUM 140 MMOL/L (135-145); TOTAL PROTEIN 7.3 GM/DL (6.4-8.2)
== END ==
LOC: EDSTATUS 02-09 09:05 → ONC 09:42
PROVIDERS: ATTEND Internal Medicine Hematology & Oncology
DX: C50.112 Malignant neoplasm of central portion of left female breast (principal); M85.80 Other specified disorders of bone density and structure, unspecified site; I10 Essential (primary) hypertension; E78.00 Pure hypercholesterolemia, unspecified; Z90.12 Acquired absence of left breast and nipple; Z92.21 Personal history of antineoplastic chemotherapy; Z79.890 Hormone replacement therapy; Z78.0 Asymptomatic menopausal state
CPT/HCPCS: 80053; 85025; G0463; 99213

== ENCOUNTER → 2021-03-22 | Outpatient (CLI) | payer MEDICARE, OTHER | LOC: LAB 08:44 | PROVIDERS: ATTEND Family Medicine | DX: E78.2 Mixed hyperlipidemia (principal); I10 Essential (primary) hypertension | CPT/HCPCS: 36415; 80061; 84443 ==

== ENCOUNTER 2022-03-12 10:08 | Emergency (ER) | payer MEDICARE, OTHER ==
[~2022-03-12] VITALS: Ht 167 cm; Wt 65.7 kg
[2022-03-12] MEDS ORDERED: NS IV 500 ML 500 ML IV STA (11:03)
[2022-03-12 11:10] LABS: BASOPHILS % (AUTO) 1 % (0-10); EOSINOPHILS # (AUTO) 0.1 10^3/uL (0.0-0.3); EOSINOPHILS % (AUTO) 2 % (0-10); HEMATOCRIT 42 % (35-52); HEMOGLOBIN 13.8 g/dL (11.5-16.0); LYMPHOCYTES % (AUTO) 19 % (12-44); MEAN CORPUSCULAR HEMOGLOBIN 27 pg (25-34); MEAN CORPUSCULAR HGB CONC 33 g/dL (32-36); MEAN CORPUSCULAR VOLUME 82 fL (80-99); MEAN PLATELET VOLUME 11.5 fL (9.0-12.2); MONOCYTES # (AUTO) 0.3 10^3/uL (0.0-1.0); MONOCYTES % (AUTO) 5 % (0-12); NEUTROPHILS % (AUTO) 74 % (42-75); PLATELET COUNT 183 10^3/uL (130-400); WHITE BLOOD COUNT 5.5 10^3/uL (4.3-11.0)
[2022-03-12 11:12] LABS: ALBUMIN 4.6 GM/DL (3.2-4.5); CHLORIDE 105 MMOL/L (98-107); POTASSIUM 3.6 MMOL/L (3.6-5.0); SODIUM 141 MMOL/L (135-145)
[2022-03-12 11:13] LABS: CALCIUM 9.5 MG/DL (8.5-10.1)
[2022-03-12 11:14] LABS: GLUCOSE 112 MG/DL (70-105); TOTAL PROTEIN 7.1 GM/DL (6.4-8.2)
[2022-03-12 11:15] LABS: CARBON DIOXIDE 26 MMOL/L (21-32)
[2022-03-12 11:16] LABS: BILIRUBIN,TOTAL 0.5 MG/DL (0.1-1.0)
[2022-03-12 11:18] LABS: ALKALINE PHOSPHATASE 39 U/L (40-136); CREATININE SERUM 0.74 MG/DL (0.60-1.30); GFR ESTIMATED 88
[2022-03-12 11:19] LABS: BUN/CREATININE RATIO 18
[2022-03-12 11:21] LABS: ALANINE AMINOTRANSFERASE 32 U/L (0-55)
[2022-03-12] MEDS ORDERED: MECLIZINE 25 MG (ANTIVERT) TAB PO ONE (11:45)
--- NOTE | 2022-03-12 11:48 | Diagnostic Imaging Report ---
PROCEDURE: CT head without contrast. TECHNIQUE: Multiple contiguous axial images were obtained through the brain without the use of intravenous contrast. Auto Exposure Controls were utilized during the CT exam to meet ALARA standards for radiation dose reduction. INDICATION: Acute dizziness. FINDINGS: There is prominence of the ventricles and sulci. There is mild chronic microvascular ischemic disease. There is no hydrocephalus. There is no midline shift. There is no mass, hemorrhage or extra-axial fluid collection. There is some left maxillary sinus disease. The remaining sinuses and mastoid air cells are clear. IMPRESSION: Atrophy and mild chronic microvascular ischemic disease however no acute intracranial abnormality. If there is high clinical concern for an acute CVA, further evaluation with MRI should be obtained. Left maxillary sinus. Dictated by: Dictated on workstation # [id number]
--- NOTE | 2022-03-12 11:51 | ED General ---
General Chief Complaint: Dizziness/Syncope Stated Complaint: DIZZINESS,N/V Nursing Triage Note: PT PRESENTS TO ED WITH COMPLAINTS OF DIZZINESS STARTING THIS AM WHEN SHE WOKE UP. PT STATES SHE ALSO FELT PALPITATIONS AND BECAME NAUSEATED AND VOMITED. PT DAUGHTER REPORTS SHE NOTICED HER MOTHERS WATCH REPORTED SHE WAS IN AFIB AND SHE DOES NOT HAVE A HX OF THAT. 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 PT DENIES CP. Source of Information: Patient Exam Limitations: No Limitations History of Present Illness Date Seen by Provider: Mar 12, 2022 Time Seen by Provider: 10:45 Initial Comments Patient is a 71-year-old female who presents to the emergency department today with a chief complaint of feeling dizzy this morning when she got up out of bed. Patient states that she did not really sleep well throughout the night. She was uncomfortable and nauseous and the dizziness came on while she was lying in bed. It was made worse with turning. She has not had anything quite like this in the past. When she got up and out of bed this morning she had a couple of episodes of vomiting. She denies headache, vision changes or speech changes. Her daughter came over and used her phone and believes that she was in atrial fibrillation. Rate according to the phone was in the 50s to 60s. I did look at these strips on the iPhone and the rhythm looked irregular and I could not discern P waves however when the patient came in and we got an EKG she is very definitely in a sinus bradycardia at 51 beats a minute. Patient states her normal heart rate is in the mid 50s to low 60s. Her nausea is much improved on arrival to the emergency department. She still feels a little dizzy with position changes. No history of atrial fibrillation. Most significant medical history is breast cancer 11 years ago with chemo and bilateral mastectomies. She continues to follow with the [facility]. No recent febrile illnesses. No earache, sore throat or runny nose. No diarrhea or urinary complaints. No black or bloody stools. She states that she ate a couple of pieces of cake late last night before bed. All other review of systems reviewed and negative except as stated Timing/Duration: 12 Hours Severity: Moderate Modifying Factors: worse with Movement Associated Systoms: Nausea/Vomiting, Other (dizziness) Allergies and Home Medications Allergies Coded Allergies: Sulfamethoxazole (Verified Allergy, Unknown, 11/04/10) Trimethoprim (Verified Allergy, Unknown, 11/04/10) Patient Home Medication List Home Medication List Reviewed: Yes Cephalexin Monohydrate (Cephalexin) 500 Mg Capsule, QID, (Reported) Entered as Reported by: WALESKA PETERSON on 09/08/101940 Fluoxetine Hcl (Fluoxetine Hcl) 20 Mg Capsule, (Reported) Entered as Reported by: WALESKA PETERSON on 09/08/101940 Olmesartan (Benicar Hct 20-12.5 Mg Tab) 1 Tab Tablet, (Reported) Entered as Reported by: WALESKA PETERSON on 09/08/101940 Ondansetron (Ondansetron Odt) 4 Mg Tab.rapdis, 4 MG PO Q8H PRN for nausea Prescribed by: KATIE ARAYA on 03/12/22 1225 Pravastatin Sodium (Pravachol) 40 Mg Tablet, (Reported) Entered as Reported by: WALESKA PETERSON on 09/08/101940 Simvastatin (Zocor) 40 Mg Tablet, (Reported) Entered as Reported by: WALESKA PETERSON on 09/08/101940 [Percocet] , (Reported) Entered as Reported by: WALESKA PETERSON on 09/08/101940 [Phenofargrate] , (Reported) Entered as Reported by: WALESKA PETERSON on 09/08/101940 [Valium] , (Reported) Entered as Reported by: WALESKA PETERSON on 09/08/101940 Review of Systems Review of Systems Constitutional: see HPI EENTM: no symptoms reported Respiratory: no symptoms reported Cardiovascular: no symptoms reported Gastrointestinal: nausea, vomiting Genitourinary: no symptoms reported : No Musculoskeletal: no symptoms reported Skin: no symptoms reported Psychiatric/Neurological: Other (dizziness) Past Bewpssc-Kzbknf-Qzcxbi Hx Patient Social History Tobacco Use?: No Substance use?: No Alcohol Use?: Yes Alcohol Frequency: Rarely Pt feels they are or have been: No Immunizations Up To Date First/Initial COVID19 Vaccinat: yes Second COVID19 Vaccination Chris: yes Third COVID19 Vaccination Date: yes 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 oz. kg; 23.00 BMI Method:Stated General Appearance: No Apparent Distress, WD/WN Eyes: Bilateral Eye Normal Inspection, Bilateral Eye PERRL, Bilateral Eye EOMI HEENT: PERRL/EOMI, TMs Normal, Pharynx Normal Neck: Normal Inspection, Non Tender, Supple Respiratory: Lungs Clear, Normal Breath Sounds, No Accessory Muscle Use, No Respiratory Distress Cardiovascular: Regular Rate, Rhythm, Normal Peripheral Pulses; No Irregularly Irregular, No Tachycardia Gastrointestinal: Normal Bowel Sounds, Non Tender, Soft Extremity: Normal Capillary Refill, Normal Inspection, Normal Range of Motion, Non Tender, No Calf Tenderness, No Pedal Edema Neurologic/Psychiatric: Alert, Oriented x3, No Motor/Sensory Deficits, Normal Mood/Affect, staff toxicologist II-XII Norm as Tested; No Abnormal Cerebellar Tests Skin: Normal Color, Warm/Dry Progress/Results/Core Measures Suspected Sepsis SIRS Temperature: Pulse: 54 Respiratory Rate: 16 Laboratory Tests 03/12/22 10:42: White Blood Count 5.5 Blood Pressure 155 /68 Mean: 97 Laboratory Tests 03/12/22 10:42: Creatinine 0.74, Platelet Count 183, Total Bilirubin 0.5 Results/Orders Lab Results Laboratory Tests Test 03/12/22 10:42 Range/Units White Blood Count 5.5 4.3-11.0 10^3/uL Red Blood Count 5.07 3.80-5.11 10^6/uL Hemoglobin 13.8 11.5-16.0 g/dL Hematocrit 42 35-52 % Mean Corpuscular Volume 82 80-99 fL Mean Corpuscular Hemoglobin 27 25-34 pg Mean Corpuscular Hemoglobin Concent 33 32-36 g/dL Red Cell Distribution Width 14.1 10.0-14.5 % Platelet Count 183 130-400 10^3/uL Mean Platelet Volume 11.5 9.0-12.2 fL Immature Granulocyte % (Auto) 0 % Neutrophils (%) (Auto) 74 42-75 % Lymphocytes (%) (Auto) 19 12-44 % Monocytes (%) (Auto) 5 0-12 % Eosinophils (%) (Auto) 2 0-10 % Basophils (%) (Auto) 1 0-10 % Neutrophils # (Auto) 4.0 1.8-7.8 10^3/uL Lymphocytes # (Auto) 1.0 1.0-4.0 10^3/uL Monocytes # (Auto) 0.3 0.0-1.0 10^3/uL Eosinophils # (Auto) 0.1 0.0-0.3 10^3/uL Basophils # (Auto) 0.0 0.0-0.1 10^3/uL Immature Granulocyte # (Auto) 0.0 0.0-0.1 10^3/uL Sodium Level 141 135-145 MMOL/L Potassium Level 3.6 3.6-5.0 MMOL/L Chloride Level 105 98-107 MMOL/L Carbon Dioxide Level 26 21-32 MMOL/L Anion Gap 10 5-14 MMOL/L Blood Urea Nitrogen 13 7-18 MG/DL Creatinine 0.74 0.60-1.30 MG/DL Estimat Glomerular Filtration Rate 88 BUN/Creatinine Ratio 18 Glucose Level 112 H 70-105 MG/DL Calcium Level 9.5 8.5-10.1 MG/DL Corrected Calcium 8.5-10.1 MG/DL Total Bilirubin 0.5 0.1-1.0 MG/DL Aspartate Amino Transf (AST/SGOT) 26 5-34 U/L Alanine Aminotransferase (ALT/SGPT) 32 0-55 U/L Alkaline Phosphatase 39 L 40-136 U/L Total Protein 7.1 6.4-8.2 GM/DL Albumin 4.6 H 3.2-4.5 GM/DL My Orders Orders - KATIE ARAYA MD Ed Iv/Invasive Line Start (03/12/22 11:03) Cbc With Automated Diff (03/12/22 11:03) Comprehensive Metabolic Panel (03/12/22 11:03) Ct Head Wo (03/12/22 11:03) Ns Iv 500 Ml (Sodium Chloride 0.9%) (03/12/22 11:03) Meclizine Tablet (Antivert Tablet) (03/12/22 11:45) Medications Given in ED Vital Signs/I&O 03/12/22 03/12/22 10:44 12:33 Temp 36.2 Pulse 54 54 Resp 16 12 B/P (MAP) 155/68 (97) 148/61 Pulse Ox 99 98 Capillary Refill : Less Than 3 Seconds Blood Pressure Mean: 97 Progress Note : Time: 12:25 Progress Note Patient feels better after the meclizine. She has gotten up and ambulated to the bathroom with a steady gait, no ataxia. She states she feels much better than her prior attempt to get up to go to the bathroom. I have sent a prescription for Zofran to her pharmacy at [facility]. I recommended continuing the meclizine every 6 hours until symptoms start to improve. Return precautions provided. All questions are sought and answered. ECG Initial ECG Impression Date: Mar 12, 2022 Initial ECG Impression Time: 10:52 Initial ECG Rate: 51 Initial ECG Rhythm: S.Karl Initial ECG Impression: Nonspecific Changes Departure Impression Primary Impression: Vertigo Disposition: 01 HOME, SELF-CARE Condition: Improved Departure-Patient Inst. Decision time for Depature: 12:22 Referrals: BUCKY MARTINEZ MD (PCP/Family) Primary Care Physician Patient Instructions: Vertigo ED Add. Discharge Instructions: Drink plenty of fluids to stay well-hydrated. Take meclizine 25 mg every 6 hours as needed for dizziness. If you develop a headache or fever with your dizziness please come back to the emergency department for reevaluation. Please call and follow-up with Dr. Martinez on Monday. Continue all your daily prescribed medications. Scripts Ondansetron (Ondansetron Odt) 4 Mg Tab.rapdis 4 MG PO Q8H PRN for nausea, #20 TAB Prov: KATIE ARAYA MD 03/12/22 Copy Copies To 1: BUCKY MARTINEZ MD, KATHRYN M MD Mar 12, 2022 11:50
[2022-03-12] MEDS ORDERED: ONDA4TAB11 PO (12:25)
[2022-03-12 12:33] VITALS: BP 148/61
== END 2022-03-12 12:32 | disposition home or self-care (01) ==
LOC: EDUNIT# 10:08 → ER 10:09
DX: R42 Dizziness and giddiness (principal); R11.2 Nausea with vomiting, unspecified
CPT/HCPCS: 36415; 70450; 80053; 85025; 93005

== ENCOUNTER → 2022-06-14 | Outpatient (CLI) | payer MEDICARE, OTHER ==
[~2022-06-14] MED LIST changes: +ONDA4TAB11 PO
--- NOTE | 2022-06-14 10:45 | Diagnostic Imaging Report ---
INDICATION: Postmenopausal state. COMPARISON: 06/09/2020 FINDINGS: AP Spine L1-L4: [BMD (g/cm2): 1.126] [T-Score: -0.6] [Z-Score: 1.0] [BMD Previous: 1.040] [BMD % Change: 8.3]* LT Hip Neck: [BMD (g/cm2): 0.740] [T-Score: -2.1] [Z-Score: -0.5] LT Hip Total: [BMD (g/cm2):0.787] [T-Score:-1.8] [Z-Score: -0.3] [BMD Previous: 0.766] [BMD % Change: 2.7] RT Hip Neck: [BMD (g/cm2):0.758] [T-Score:-2.0] [Z-Score:-0.4] RT Hip Total: [BMD (g/cm2):0.833] [T-score:-1.4] [Z-Score:0.0] [BMD Previous:0.830] [BMD % Change:0.4] *Indicates significant change from prior examination based on 95% confidence level. World Health Organization criteria for BMD interpretation classify patients as Normal (T-score at or above -1.0), Osteopenic (T-score between -1.0 and -2.5) or Osteoporotic (T-score at or below -2.5). LIMITATIONS AND MODIFICATION: None. FRACTURE RISK (FRAX SCORE): FRAX score is not calculated as the patient has been treated for osseous demineralization. IMPRESSION: 1. Osteopenia (Low bone mass). 2. Bone mineral density within the lumbar spine has significantly increased since the prior examination. Bone mineral density within the hips has not significantly changed since the prior exam. 3. See below National Osteoporosis Foundation guidelines on when to potentially initiate pharmacologic therapy. Based on the National Osteoporosis Foundation Guidelines, pharmacologic treatment should be initiated in any of the following, unless clinical conditions suggest otherwise: * Any patient with prior fragility fracture of the hip or vertebrae. A spine fracture indicates 5X risk for subsequent spine fracture and 2X risk for subsequent hip fracture. * Osteoporosis (T-score <-2.5). * Postmenopausal women and men age 50 and older with low bone mass/osteopenia (T-score between -1.0 and -2.5) by DXA and 10-year major osteoporotic fracture greater than 20% or a 10-year probability of hip fracture greater than 3%. These fracture risks are supplied above in the FRAX score, if applicable. * Clinician judgement and/or patient preferences may indicate treatment for people with 10-year fracture probabilities above or below these levels. Dictated by: Dictated on workstation # [id number]
== END ==
LOC: RAD 09:49
PROVIDERS: ATTEND Nurse Practitioner
DX: C50.112 Malignant neoplasm of central portion of left female breast (principal); M85.80 Other specified disorders of bone density and structure, unspecified site; Z78.0 Asymptomatic menopausal state
CPT/HCPCS: 77080